=== PATIENT | male | born 1990 | race Caucasian/White ===

== ENCOUNTER 2019-01-03 14:06 | Outpatient (CLI) | payer OTHER, SELFPAY ==
--- NOTE | 2019-01-03 14:56 | DI.RAD_ITS ---
EXAM: XR FACIAL BONES COMPLETE INDICATION: FRACTURE T14.8, HEADACHES, VERTIGO, H/O HEAD INJURIES IN THE PAST. COMPARISON: No exams were available for comparison TECHNIQUE: 2D digital imaging was performed. FINDINGS: No fracture or sinus opacification is seen. Temporomandibular joints appear intact. IMPRESSION: Negative facial bones.
== END 2019-01-03 14:26 ==
PROVIDERS: Visit Provider Orthopaedic Surgery
DX: R51 Headache (principal); R42 Dizziness and giddiness
CPT/HCPCS: 70150